=== PATIENT | male | born 1950 | race Caucasian/White ===

== ENCOUNTER 2016-12-06 06:57 | Day surgery (SDC) | payer MEDICARE, BC ==
[~2016-12-06] VITALS: Ht 177.8 cm; Wt 106.1 kg
[2016-12-06] MEDS ORDERED: ZOCOR 40MG40 MG PO (07:23)
[2016-12-06] MEDS ORDERED: PRINIVIL20 MG PO (07:23)
[2016-12-06] MEDS ORDERED: HCTZ 25MG TAB25 MG PO (07:23)
[2016-12-06] MEDS ORDERED: EPA FISH OIL1 SGL PO (07:24)
[2016-12-06] MEDS ORDERED: MULTIPLE VITAMI1 CAP PO (07:24)
[2016-12-06 07:35] VITALS: BP 120/89; PULSE 72; TEMP 98.3
[2016-12-06 09:05] VITALS: BP 113/76; PULSE 76; TEMP 98.1
[2016-12-06 09:20] VITALS: BP 112/87; PULSE 83
[2016-12-06 12:45] VITALS: BP 116/76; PULSE 79
== END 2016-12-06 09:45 | disposition home or self-care (01) ==
LOC: SDCO 06:57
DX: Z12.11 Encounter for screening for malignant neoplasm of colon (principal); D12.3 Benign neoplasm of transverse colon; K64.0 First degree hemorrhoids; I10 Essential (primary) hypertension; E78.5 Hyperlipidemia, unspecified
CPT/HCPCS: OP; J2250; J3010; J7030

== ENCOUNTER → 2018-03-12 | Outpatient (CLI) | payer MEDICARE, BC ==
[~2018-03-12] MED LIST: EPA FISH OIL1 SGL PO; HCTZ 25MG TAB25 MG PO; MULTIPLE VITAMI1 CAP PO; PRINIVIL20 MG PO; ZOCOR 40MG40 MG PO
== END ==
LOC: COL.RAD 11:30
DX: M47.817 Spondylosis without myelopathy or radiculopathy, lumbosacral region (principal); M48.07 Spinal stenosis, lumbosacral region; D47.2 Monoclonal gammopathy

== ENCOUNTER → 2019-04-10 | Outpatient (CLI) | payer MEDICARE, BC | LOC: COL.RAD 09:48 | DX: E21.3 Hyperparathyroidism, unspecified (principal) | CPT/HCPCS: A9500 ==